=== PATIENT | male | born 1960 | race Caucasian/White ===

== ENCOUNTER 2019-04-24 16:40 | Emergency (ER) | payer OTHER, SELFPAY ==
[2019-04-24] MEDS ORDERED: Lidocaine 1% w/Epinephrine 1:100K 20 ML VIAL ONE (17:13)
[2019-04-24] MEDS ORDERED: HYDROcodone/Acetaminophen 5/325 mg Tablet ONE (17:29)
[2019-04-24] MEDS ORDERED: Ibuprofen 800 MG TAB ONE (17:43)
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
[2019-04-24] MEDS ORDERED: Adacel (T-DAP) 0.5 ML SYRINGE ONE (18:13)
[2019-04-24] MEDS ORDERED: Bacitracin 1 PK ONE (18:35)
== END 2019-04-24 18:53 | disposition home or self-care (01) ==
LOC: ERS 16:40
DX: S51.812A Laceration without foreign body of left forearm, initial encounter (principal); M25.552 Pain in left hip; R07.81 Pleurodynia; V89.2XXA Person injured in unspecified motor-vehicle accident, traffic, initial encounter
CPT/HCPCS: 12001; 90471; 90715; J2001